=== PATIENT | female | born 1980 | race Caucasian/White ===

== ENCOUNTER 2021-01-23 10:58 | Emergency (ER) | payer OTHER, SELFPAY ==
[2021-01-23 11:10] VITALS: BP 127/80; PULSE 74; RESP 16; TEMP 36.6; O2SAT 99
--- NOTE | 2021-01-23 11:10 | ED.DENTAL ---
HPI - Dental/Oral General Chief complaint: Dental/Oral Stated complaint: Tooth Pain Time Seen by Provider: 01/23/21 11:10 Source: patient and RN notes reviewed Mode of arrival: ambulatory Limitations: no limitations History of Present Illness HPI Narrative: Shelia is a 40-year-old female patient who comes in today with complaint of left upper tooth pain. Patient states it has been going off and on for the last month. Patient just delivered a child 4 weeks ago. Patient states has been bad the last 3 days. Patient has been taking ibuprofen at home without relief. Patient has only been taking 1 to 2 tablets once a day. Patient rates a 10/7 and out of 10 at rest MD Complaint: tooth pain Related Data Home Medications Medication Instructions Recorded Confirmed blood sugar diagnostic [OneTouch 01/23/21 01/23/21 Verio test strips] cholecalciferol (vitamin D3) 01/23/21 emtricitabine-tenofovir (TDF) tablet 01/23/21 01/23/21 folic acid 01/23/21 lancets [OneTouch Delica Plus 01/23/21 01/23/21 Lancet] nicotine (polacrilex) mg 01/23/21 vit,[id number] tablet 01/23/21 [PNV 29-1] raltegravir [Isentress HD] mg 01/23/21 valacyclovir 01/23/21 Allergies Allergy/AdvReac Type Severity Reaction Status Date / Time No Known Allergies Allergy Verified 01/23/21 11:08 Review of Systems Review of Systems: CONSTITUTIONAL: Denies body aches, fever, chills, or sweats. EYES: Denies visual changes, redness, or discharge. ENT: Denies rhinorrhea, congestion, sore throat, or otalgia.m + tooth ache CARDIOVASCULAR: Denies chest pain, palpitations, or edema. RESPIRATORY: Denies cough or dyspnea. GASTROINTESTINAL: Denies abdominal pain, nausea, vomiting, or diarrhea. GENITOURINARY: Denies dysuria or hematuria. SKIN: Denies rash, itching, or wounds. MUSCULOSKELETAL: Denies back pain, joint pain, or myalgia. NEUROLOGIC: Denies headache, numbness, tingling, or weakness. PSYCH: Denies depression or anxiety. All systems reviewed & are unremarkable except as noted in HPI and below PMFSH Comments At time of signature, I have reviewed and agree with nursing past medical, surgical, social and family history unless otherwise noted. Please see nursing chart for further information. There is no relevant family history pertinent to the presenting complaint Exam Narrative: GENERAL: Well-appearing, well-nourished, and in no acute distress. HEAD: Normocephalic, atraumatic. minimal edema left maxillary area, tooth #15 cracked, EYES: EOMI. No redness or drainage. Conjunctivae normal. ENT: Mucous membranes pink and moist. Nares clear. No rhinorrhea. Throat normal. Uvula midline. NECK: Normal AROM. Supple. No lymphadenopathy. CHEST: No respiratory distress. MUSCULOSKELETAL: No bony tenderness. EXTREMITIES: Normal range of motion. No edema. SKIN: Warm, dry, no rash. Capillary refill normal. Normal skin turgor. NEURO: No focal deficits. Alert and oriented x3. Gait steady. PSYCH: Normal affect. No signs of depression or anxiety. Course Vital Signs Vital signs: Reviewed MDM - Dental/Oral MDM Narrative Medical decision making narrative: Tooth #15 is broken and a piece is missing. Patient has swelling to the left maxillary area. Patient to follow-up with her dentist in the next 7 to 10 days. A list will be provided of local dentist. Patient will be put on Augmentin and ibuprofen 800 mg 3 times a day. Differential Diagnosis Differential diagnosis: Likely gingival abscess, dental caries and dental abscess Medical Records Attestation: I reviewed the patient's medical records. Discharge Plan Discharge Clinical Impression: Dental abscess Patient Disposition: Home, Self-Care Condition: Stable Instructions: Antibiotic Form, Dental Abscess (ED) Additional Instructions: Use ice to the area. Do not use ibuprofen, Aleve, or Motrin while on prescription strength ibuprofen. Follow-up with your dentist in the
== END 2021-01-23 11:25 | disposition home or self-care (01) ==
PROVIDERS: Emergency Provider Nurse Practitioner Family
DX: K04.7 Periapical abscess without sinus (principal); Z21 Asymptomatic human immunodeficiency virus [HIV] infection status
CPT/HCPCS: 99213; G0463